=== PATIENT | male | born 1945 | race Caucasian/White ===

== ENCOUNTER 2021-03-17 13:53 | Outpatient (CLI) | payer MEDICARE ==
[~2021-03-17 13:53] MED LIST: Magnevist 469MG/ML 20 ML VIAL ONE
== END 2021-03-17 13:54 | disposition home or self-care (01) ==
LOC: TBSIIMAG 13:53
PROVIDERS: ATTEND Nurse Practitioner Family
DX: R97.20 Elevated prostate specific antigen [PSA] (principal)
CPT/HCPCS: 72197; A9579

== ENCOUNTER 2022-01-13 08:28 | Outpatient (CLI) | payer MEDICARE, OTHER ==
[~2022-01-13 08:28] MED LIST changes: +Gadobenate Dimeglumine 529 MG/1 ML (20ML VIAL) ONE; -Magnevist 469MG/ML 20 ML VIAL ONE
== END 2022-01-13 08:29 | disposition home or self-care (01) ==
LOC: TBSIIMAG 08:28
PROVIDERS: ATTEND Urology
DX: R97.20 Elevated prostate specific antigen [PSA] (principal)
CPT/HCPCS: 72197; 82565; A9577

== ENCOUNTER 2022-06-29 10:18 | Outpatient (CLI) | payer MEDICARE, OTHER ==
[2022-06-29 11:03] LABS: #Eosinphils 0.1 10x3/uL (0.0-0.5); #Monocytes 0.6 10x3/uL (0.0-1.1); #Neutrophils 2.4 10x3/uL (1.5-8.4); %Basophils 0.2 % (0.0-2.0); %Monocytes 11.8 % (0.0-10.0); %Neutrophils 49.6 % (40.0-75.0); Hemoglobin 16.1 g/dL (13.5-17.5); Mean Corpuscular HGB CONC 34.8 g/dL (32.0-36.0); Mean Corpuscular Hemoglobin 31.9 pg (27.0-33.0); Mean Corpuscular Volume 91.9 fl (81.2-95.1); Mean Platelet Volume 9.4 fl (7.4-10.4); Platelet Count 186 10x3/uL (150-450); RBC Distribution Width 12.8 % (11.5-14.5); Red Blood Cell (RBC) Count 5.04 10x6/uL (4.32-5.72); White Blood Cell (WBC) Count 4.9 10x3/uL (3.5-10.5)
[2022-06-29 11:20] LABS: Anion Gap 12 mmol/L (10-20); BUN (Urea Nitrogen) 19 mg/dL (8.4-25.7); Calc. Creatinine Clearance 0 mL/min (70-130); Calcium 9.3 mg/dL (7.8-10.44); Carbon Dioxide 26 mmol/L (23-31); Chloride 105 mmol/L (98-107); Estimated GFR 66; Glucose 93 mg/dL (83-110); Potassium 4.1 mmol/L (3.5-5.1); Sodium 139 mmol/L (136-145)
== END 2022-06-29 10:19 | disposition home or self-care (01) ==
LOC: LABBT 10:18
PROVIDERS: ATTEND Orthopaedic Surgery
DX: Z01.818 Encounter for other preprocedural examination (principal); S46.011A Strain of muscle(s) and tendon(s) of the rotator cuff of right shoulder, initial encounter
CPT/HCPCS: 71046; 80048; 85025; 93005; 93010

== ENCOUNTER 2022-08-10 11:24 | Emergency (ER) | payer MEDICARE, OTHER ==
[2022-08-10 12:20] LABS: #Eosinphils 0.1 thou/uL (0.0-0.7); #Lymphocytes 1.9 thou/uL (1.20-3.40); #Monocytes 0.6 thou/uL (0.11-0.59); #Neutrophils 2.5 thou/uL (1.40-6.50); %Basophils 0.8 % (0.0-1.0); %Eosinophils 1.2 % (0.0-10.0); %Lymphocytes 37.6 % (21.0-51.0); %Monocytes 12.3 % (0.0-10.0); %Neutrophils 48.1 % (42.0-75.0); Hemoglobin 15.8 g/dL (14.0-18.0); Mean Corpuscular HGB CONC 34.2 g/dL (32.0-36.0); Mean Corpuscular Hemoglobin 32.5 pg (27.0-31.0); Mean Platelet Volume 6.9 fL (7.4-10.4); Platelet Count 189 10x3/uL (130-400); Red Blood Cell (RBC) Count 4.88 mill/uL (4.70-6.10); White Blood Cell (WBC) Count 5.1 10x3/uL (4.8-10.8)
[2022-08-10 12:37] LABS: ALT (SGPT) 38 U/L (8-55); AST (SGOT) 29 U/L (5-34); Albumin 4.1 g/dL (3.4-4.8); Alkaline Phosphatase 85 U/L (40-110); Anion Gap 11 mmol/L (10-20); BUN (Urea Nitrogen) 11 mg/dL (8.4-25.7); Bilirubin, Total 0.5 mg/dL (0.2-1.2); Calc. Creatinine Clearance 0 mL/min (70-130); Calcium 9.2 mg/dL (7.8-10.44); Carbon Dioxide 26 mmol/L (23-31); Chloride 106 mmol/L (98-107); Estimated GFR 74; Globulin 2.6 g/dL (2.4-3.5); Glucose 99 mg/dL (83-110); Protein, Total 6.7 g/dL (5.8-8.1)
[2022-08-10 12:43] LABS: Sodium 139 mmol/L (136-145)
== END 2022-08-10 13:39 | disposition home or self-care (01) ==
LOC: ERS 11:24
DX: I82.461 Acute embolism and thrombosis of right calf muscular vein (principal); F17.290 Nicotine dependence, other tobacco product, uncomplicated
CPT/HCPCS: 36415; 80053; 84484; 85025; 85379